=== PATIENT | male | born 1995 ===

== ENCOUNTER 2023-11-18 06:08 | Emergency (ER) | payer SELFPAY ==
[2023-11-18] MEDS: Acetaminophen 325 MG Tab PO ONE (06:41)
== END 2023-11-18 06:50 | disposition home or self-care (01) ==
LOC: DL.ED 06:08
DX: J01.90 Acute sinusitis, unspecified (principal); H92.02 Otalgia, left ear; F17.200 Nicotine dependence, unspecified, uncomplicated
CPT/HCPCS: 99283; A9270